=== PATIENT | male | born 1970 | race Caucasian/White ===

== ENCOUNTER 2021-07-02 11:54 | Inpatient (IN) ==
[2021-07-02] MEDS ORDERED: Standard 16mcg/mL; 4 MG in 250 mL for BRADYCARDIA IV SCH (12:15)
[2021-07-02] MEDS ORDERED: NOREPINEPHRINE BITARTRATE 1 MG/ML 4 ML VIAL (CATH LAB USE ONLY) ONE (12:30)
[2021-07-02] MEDS ORDERED: SODIUM BICARB 8.4% INJ 50 MEQ/50 ML SYR IV ONE (12:31)
--- NOTE | 2021-07-02 12:33 | Emergency Department Note ---
History of Present Illness General Chief complaint: Cardiac Arrest/CPR Stated complaint: CHEST PAIN Source: EMS and other (Girlfriend) Mode of arrival: EMS Limitations: clinical acuity History of Present Illness Provider complaint: Chest pain Onset (ago): day(s) 4 Location: chest Quality: + other (Gas and tightness) Associated symptoms: + nausea/vomiting and + shortness of breath This is a 51-year-old male who presents in cardiac arrest. Prior to going into arrest he provided history to EMS. EMS states that he had been having chest pain for 3 to 4 days. He describes it as a gas indigestion-like sensation as well as tightness in the chest. It was associated with shortness of breath. He had no significant improvement with nitroglycerin in the ambulance. He was given 2 nitroglycerin and aspirin in the ambulance. He was very pale according to the ambulance crew. He has not seen a doctor since he was 12 years old and smokes every day. He has no known medical problems. He has had no recent fever. He was vomiting and short of breath today. On the way to the hospital he went into cardiac arrest. He initially had pulseless V. tach. He was defibrillated once and given a total of 4 mg epinephrine IV. And I gel airway was placed and CPR was initiated. He continued to have PEA. Allergies Allergy/AdvReac Type Severity Reaction Status Date / Time No Known Allergies Allergy Verified 07/02/21 12:13 Past Med/Surg History Medical History No pertinent past medical history Social History Smoking Status: Current every day smoker Review of Systems See HPI for pertinent positives & negatives. Unobtainable due to endotracheal tube and Unobtainable due to reduced consciousness Physical Exam Vital Signs Vital Signs - 24 hr 07/02/21 12:18 07/02/21 12:27 07/02/21 13:42 Respiratory Rate 24 34 H Fraction of Inspired Oxygen 100 Sepsis Recent Fever Within 48 Hours No Sepsis New/Unexplained Change in Mental Status N/A Sepsis Action Taken by Nursing No Action Required The physical exam is limited due to the patient's condition. Constitutional: Vital signs reviewed. Eyes: Pupils are round. Conjunctiva are noninjected. HENT: I gel [address] Respiratory: Breath sounds are equal bilaterally. Cardiovascular: Pulseless. GI: Soft, nondistended. Musculoskeletal: IO access right proximal humerus. IV left upper extremity. Integumentary: Very pale. Neurological: The patient is unresponsive. Psychiatric: Unable to assess. Procedures Intubation Time out performed: No sedative: none Laryngoscope: fiber optic video scope ET Tube Size: 7.5 ET Tube Uncuffed: No Tube Secured Depth (cm): 25 Tube Secured Location: lips Tube Placement Confirmation: visualized tube passing through cords and equal breath sounds bilaterally Patient Tolerated Procedure: well Intubation Complications: none Medical Decision Making Differential Diagnosis Cardiopulmonary arrest, STEMI, CAD, aortic dissection, ventricular tachycardia Medical Records Attestation: I reviewed the patient's medical records. I did perform a limited focused review of portions of the patient's old chart on the electronic medical record. The patient has had no prior visits to this hospital. Home Medications Current Medication List: was personally reviewed by me Laboratory Data Attestation: I reviewed the patient's lab results. Result diagrams: 07/02/21 12:05 07/02/21 12:05 Lab Results 07/02/21 07/02/21 07/02/21 Range/Units 11:58 12:05 12:05 WBC 17.53 H (4.8-10.8) K/uL RBC 4.52 L (4.7-6.1) M/uL Hgb 13.2 L (14.0-18.0) g/dL Hct 40.8 L (42-52) % MCV 90.3 (80-100) fL MCH 29.2 (25-34) pg MCHC 32.4 (32-36) g/dL RDW Std Deviation 48.8 H (36.4-46.3) fL RDW Coeff of Kasey 14.8 H (11.5-14.5) % Plt Count 225 (130-400) K/uL MPV 11.7 H (7.4-10.4) fL Immature Gran % (Auto) 1.4 % Neut % (Auto) 74.4 % Lymph % (Auto) 18.5 % Hardee % (Auto) 4.9 % Eos % (Auto) 0.1 % Baso % (Auto) 0.7 % Neut # (Auto) 13.06 H (1.4-6.5) K/uL Lymph # (Auto) 3.24 (1.2-3.4) K/uL Hardee # (Auto) 0.86 H (0.11-0.59) K/uL Eos # (Auto) 0.01 (0-0.5) K/uL Baso # (Auto) 0.12 (0-0.2) K/uL Immature Gran # (Auto) 0.24 H (0.00-0.02) K/uL Absolute Nucleated RBC 0.27 H (0-0) K/uL Nucleated RBC % (auto) 1.6 % Platelet Estimate Normal (Normal) Ovalocytes 1+ Echinocytes 1+ PT (9.0-12.0) Seconds INR (0.9-1.1) APTT (21.0-31.0) Seconds PTT Ratio Activ Coag Time Kaolin (94-140) SECONDS POC pH (7.35-7.45) POC pCO2 (35-46) mmHg POC pO2 (80-95) mmHg POC HCO3 (19-24) kassidy/L POC Total CO2 (24-31) mmol/L POC Base Excess (-9-1.8) kassidy/L POC ABG O2 Sat (90-95) % Sodium Potassium Chloride Carbon Dioxide Anion Gap BUN Creatinine Est Cr Clr Drug Dosing Est GFR ( Amer) Est GFR (Non-Af Amer) BUN/Creatinine Ratio Glucose Calcium Magnesium Total Bilirubin AST ALT Alkaline Phosphatase Total Creatine Kinase CK-MB (CK-2) CK/CKMB % Calc Troponin I Cancelled Total Protein Albumin Globulin Albumin/Globulin Ratio Lipase SARS-CoV-2, RNA, NAAT NEGATIVE (NEGATIVE) 07/02/21 07/02/21 07/02/21 Range/Units 12:05 12:05 12:23 WBC (4.8-10.8) K/uL RBC (4.7-6.1) M/uL Hgb (14.0-18.0) g/dL Hct (42-52) % MCV (80-100) fL MCH (25-34) pg MCHC (32-36) g/dL RDW Std Deviation (36.4-46.3) fL RDW Coeff of Kasey (11.5-14.5) % Plt Count (130-400) K/uL MPV (7.4-10.4) fL Immature Gran % (Auto) % Neut % (Auto) % Lymph % (Auto) % [place] % (Auto) % Eos % (Auto) % Baso % (Auto) % Neut # (Auto) (1.4-6.5) K/uL Lymph # (Auto) (1.2-3.4) K/uL Hardee # (Auto) (0.11-0.59) K/uL Eos # (Auto) (0-0.5) K/uL Baso # (Auto) (0-0.2) K/uL Immature Gran # (Auto) (0.00-0.02) K/uL Absolute Nucleated RBC (0-0) K/uL Nucleated RBC % (auto) % Platelet Estimate (Normal) Ovalocytes Echinocytes PT (9.0-12.0) Seconds INR (0.9-1.1) APTT (21.0-31.0) Seconds PTT Ratio Activ Coag Time Kaolin 368 H (94-140) SECONDS POC pH (7.35-7.45) POC pCO2 (35-46) mmHg POC pO2 (80-95) mmHg POC HCO3 (19-24) kassidy/L POC Total CO2 (24-31) mmol/L POC Base Excess (-9-1.8) kassidy/L POC ABG O2 Sat (90-95) % Sodium Cancelled Potassium Cancelled Chloride Cancelled Carbon Dioxide Cancelled Anion Gap Cancelled BUN Cancelled Creatinine Cancelled Est Cr Clr Drug Dosing Cancelled Est GFR ( Amer) Cancelled Est GFR (Non-Af Amer) Cancelled BUN/Creatinine Ratio Cancelled Glucose Cancelled Calcium Cancelled Magnesium Cancelled Total Bilirubin Cancelled AST Cancelled ALT Cancelled Alkaline Phosphatase Cancelled Total Creatine Kinase Cancelled CK-MB (CK-2) Cancelled CK/CKMB % Calc Cancelled Troponin I Cancelled Total Protein Cancelled Albumin Cancelled Globulin Cancelled Albumin/Globulin Ratio Cancelled Lipase Cancelled SARS-CoV-2, RNA, NAAT (NEGATIVE) 07/02/21 07/02/21 07/02/21 Range/Units 12:45 12:46 13:19 WBC (4.8-10.8) K/uL RBC (4.7-6.1) M/uL Hgb (14.0-18.0) g/dL Hct (42-52) % MCV (80-100) fL MCH (25-34) pg MCHC (32-36) g/dL RDW Std Deviation (36.4-46.3) fL RDW Coeff of Kasey (11.5-14.5) % Plt Count (130-400) K/uL MPV (7.4-10.4) fL Immature Gran % (Auto) % Neut % (Auto) % Lymph % (Auto) % Hardee % (Auto) % Eos % (Auto) % Baso % (Auto) % Neut # (Auto) (1.4-6.5) K/uL Lymph # (Auto) (1.2-3.4) K/uL Hardee # (Auto) (0.11-0.59) K/uL Eos # (Auto) (0-0.5) K/uL Baso # (Auto) (0-0.2) K/uL Immature Gran # (Auto) (0.00-0.02) K/uL Absolute Nucleated RBC (0-0) K/uL Nucleated RBC % (auto) % Platelet Estimate (Normal) Ovalocytes Echinocytes PT (9.0-12.0) Seconds INR (0.9-1.1) APTT (21.0-31.0) Seconds PTT Ratio Activ Coag Time Kaolin 309 H 285 H (94-140) SECONDS POC pH 7.30 L (7.35-7.45) POC pCO2 50 H (35-46) mmHg POC pO2 123 H (80-95) mmHg POC HCO3 25 H (19-24) kassidy/L POC Total CO2 26 (24-31) mmol/L POC Base Excess -2.0 (-9-1.8) kassidy/L POC ABG O2 Sat 98.0 H (90-95) % Sodium Potassium Chloride Carbon Dioxide Anion Gap BUN Creatinine Est Cr Clr Drug Dosing Est GFR ( Amer) Est GFR (Non-Af Amer) BUN/Creatinine Ratio Glucose Calcium Magnesium Total Bilirubin AST ALT Alkaline Phosphatase Total Creatine Kinase CK-MB (CK-2) CK/CKMB % Calc Troponin I Total Protein Albumin Globulin Albumin/Globulin Ratio Lipase SARS-CoV-2, RNA, NAAT (NEGATIVE) ECG Data Attestation: I personally reviewed and interpreted this ECG as follows: Indication: + chest pain Rate (beats per minute): 123 Rhythm: + sinus tachycardia ECG ST segments: + ST depression and + ST elevation Comparison ECG Date: no prior available MDM Narrative I did provide prehospital medical command for the patient. At that time the patient was awake and complaining of chest pain. He had been given 2 nitroglycerin sprays as well as an aspirin prior to the medical command call. I did recommend IV fentanyl and Zofran and transport to the hospital. Apparently on route the patient went into cardiac arrest as soon as the shirt marker hung up the phone with me. He had pulseless V. tach and was shocked once and went into PEA. CPR was initiated. An I gel 3 was placed for airway protection. CPR was commenced and he was given a total of 4 mg of epinephrine prior to arrival. He also received 300 mg of amiodarone. I did immediately evaluate the patient as noted above. Pulse check revealed PEA. ACLS was continued. While in the emergency department I did place an order for continuous cardiac monitoring. The monitor showed PEA with a rate of 44. I did personally review the patient's prehospital 12-lead EKG as described above. He has an anterior lateral STEMI. Dr. Teague of cardiology was in the room when the patient arrived and stated he would take him straight to the [facility] [employer] after an airway was secured. I did intubate patient. A second IV was established. The patient was taken emergently to the cardiac catheterization lab. I did update the patient's significant other and obtain further history from her. I did order and review the patient's blood work as noted in the electronic medical record. His white count is 17. Hemoglobin is 13. Platelet count is 225. COVID-19 testing is negative. INR is elevated at 1.2. Impression & Plan Cardiac arrest, ST elevation (STEMI) myocardial infarction Discharge Plan Visit Data Chief Complaint: Cardiac Arrest/CPR Stated Complaint: CHEST PAIN ED Provider: Dhiraj Nava Discharge Problem: Cardiac arrest, ST elevation (STEMI) myocardial infarction Patient Disposition: Admitted As Inpatient Discharge Instructions Interventions: ED Discharge Assessment Last Done: 07/02/21 12:10 Discharge Problem: ST elevation (STEMI) myocardial infarction Qualifiers: Involved coronary artery: unspecified coronary artery Qualified Code(s): I21.3 - ST elevation (STEMI) myocardial infarction of unspecified site
[2021-07-02] MEDS ORDERED: EPTIFIBATIDE 0.75 MG/ML 75MG VIAL (CATH LAB USE ONLY) ONE (12:45)
[2021-07-02] MEDS ORDERED: EPTIFIBATIDE 2 MG/ML 10 ML VIAL (CATH LAB USE ONLY) IV ONE (12:45)
[2021-07-02 12:58] LABS: Basophils # (auto) 0.12 K/uL (0-0.2); Basophils % (auto) 0.7 %; Echinocytes 1+; Eosinophils # (auto) 0.01 K/uL (0-0.5); Eosinophils % (auto) 0.1 %; Hematocrit (blood only) 40.8 % (42-52); Hemoglobin 13.2 g/dL (14.0-18.0); Immature Granulocytes # (auto) 0.24 K/uL (0.00-0.02); Immature Granulocytes % (auto) 1.4 %; Lymphocytes # (auto) 3.24 K/uL (1.2-3.4); Lymphocytes % (auto) 18.5 %; Mean Corpuscular Hemoglobin 29.2 pg (25-34); Mean Corpuscular Hgb Conc 32.4 g/dL (32-36); Mean Corpuscular Volume 90.3 fL (80-100); Mean Platelet Volume 11.7 fL (7.4-10.4); Monocytes # (auto) 0.86 K/uL (0.11-0.59); Monocytes % (auto) 4.9 %; Neutrophils # (auto) 13.06 K/uL (1.4-6.5); Neutrophils % (auto) 74.4 %; Nucleated RBC # (auto) 0.27 K/uL (0-0); Nucleated RBC % (auto) 1.6 %; Ovalocytes 1+; Platelet Count 225 K/uL (130-400); Platelet Estimate Normal (Normal); RDW Coefficient of Variation 14.8 % (11.5-14.5); RDW Standard Deviation 48.8 fL (36.4-46.3); Red Blood Count 4.52 M/uL (4.7-6.1); White Blood Count 17.53 K/uL (4.8-10.8)
[2021-07-02] MEDS ORDERED: AMIODARONE 360MG / 200ML D5W (CATH LAB USE ONLY) ONE (13:06)
[2021-07-02] MEDS ORDERED: AMIODARONE 150MG / 100ML D5W (CATH LAB USE ONLY) ONE (13:06)
[2021-07-02] MEDS ORDERED: VASOPRESSION #-# Do NOT Titrate #-# Option IV SCH (13:45)
[2021-07-02] MEDS ORDERED: SODIUM BICARBONATE 8.4% 150 MEQ in DEXTROSE 5% 1,000 ML IV SCH (13:45)
[2021-07-02 15:57] LABS: iSTAT Arterial Blood Gas HCO3 25 meg/L (19-24); iSTAT Arterial Blood Gas pCO2 50 mmHg (35-46); iSTAT Arterial Blood Gas pO2 123 mmHg (80-95); iSTAT Carbon Dioxide 26 mmol/L (24-31)
--- NOTE | 2021-07-02 16:22 | Cardiology Consultation ---
Date of Consultation July 02, 2021 Assessment & Plan (1) Cardiac arrest: Patient with anterior WI and persistent cardiac arrest beginning while en route with EMS. Young patient with no known comorbidities. Recommend emergent mechanical circulatory support and possible PCI. History of Present Illness Attending Physician: Aditya Teague MD History of Present Illness Mr. Munson is a 51-year-old man seen emergently in the ED for anterior STEMI and cardiac arrest. Patient with no known prior medical history. Active smoker. Family history of premature CAD involving his mother. Reportedly having intermittent chest pain for the last several days. This morning around 3 AM he woke up his significant other due to chest pain and vomiting. Chest pain persisted until eventually called EMS approximately 8 hours later. Heart alert was activated in route around 11:30 AM due to EKG showing diffuse >3 mm anterior/lateral ST elevations. While in ambulance patient subsequently had a VF arrest requiring defibrillation x1 with subsequent PEA which persisted on arrival. CPR ongoing with Tao device. Allergies Allergy/AdvReac Type Severity Reaction Status Date / Time No Known Allergies Allergy Verified 07/02/21 12:13 Patient History Medical History No pertinent past medical history Social History Smoking Status: Current every day smoker Review of Systems Review of Systems: Unobtainable due to endotracheal tube Physical Exam Physical Exam: General: Intubated, unresponsive Vascular: Nonpalpable radial pulse. Palpable femoral pulse with chest compressions Abdomen: Soft Extremities: No edema, cool Results & Data ([facility]) Vital Signs (Past 12 Hours) Vital Signs Resp 07/02/21 13:42 34 H 07/02/21 12:27 24 PG Care Time/CCT Total # of Minutes Spent Total Time Spent with Patient: Total time spent is greater than 50% in coordination of care (as documented) at patient's floor/unit and/or counseling patient: Coding Level of Care Code 12459 Inpt Consult Level 5 Diagnoses Cardiac arrest I46.9
--- NOTE | 2021-07-02 17:23 | Cardiac Catheterization ---
[facility] Data: Bait Packer Cardiac Status Clinical evaluation leading to the procedure CAD Presenation: STEMI Anginal Classification: CCS IV Heart Failure: No Cardiogenic Shock within 24 Hours: Yes Cardiac Arrest within 24 Hours: Yes Diagnostic Physicians Name: Aditya Teague MD Status: Emergency Closure Device Percutaneous Entry Location: Femoral Recommendations: PCI without planned CABG PCI Indication: Immediate PCI for STEMI Lesion Segment Name: Proximal left main Culprit Artery: Yes Stenosis Prior to Rx (%): 100 Chronic Total Occlusion: No IVUS: No FFR: No Pre-Procedure SATHYA Flow: 0 Previously Treated Lesion: No Lesion Complexity: High/C Lesion Length (mm): 30 Thrombus Present: Yes Bifurcation Lesion: Yes Guidewire Across Lesion: Stenosis Post-Procedure (%): 0 Post-Procedure SATHYA Flow: 3 Devices(s) Deployed: Yes Yes Intraprocedure Events Significant Disection: No Perforation: No Cardiac Cath Procedure Full Procedure Date July 02, 2021 Pre-Procedure Diagnosis Pre-Procedure Diagnosis: STEMI AUC Score AUC Score: 9 Post-Procedure Diagnosis Post-Procedure Diagnosis: Severe CAD, Unsuccessful PCI and Elevated Intracardiac Pressures Procedure(s) Performed Procedure(s) Performed: Coronary Angiography, Left Heart Cath, Right Heart Cath, Drug Eluting Stent, Ultrasound Guided Vascular Access, Femoral Artery Angio graphy and Procedure (Impella placement) Department Of Sociology Chair Aditya Teague MD Proposal Analyst(s) Rashawn Estimated Blood Loss Estimated Blood Loss: 25 Medication(s) Medication(s): Atropine, Epinephrine, Heparin, Integrilin and Norepinephrine Medication(s): Amiodarone, vasopressin, sodium bicarbonate Summary of Findings Indication: STEMI/Heart Alert Anterior MT with symptoms beginning around 9 hours prior to presentation. VF arrest in the ambulance en route followed by persistent PEA. Ongoing CPR with Tao device upon arrival. Access: 6 Fr right TAKER OFF DRYING KILN, 7 Fr right CFV, 14 Fr left TAKER OFF DRYING KILN Catheters: Pigtail, EBU 3.5 guide, diagnostic JR4, 7 Fr [place] Findings: LM -acute 100% proximal occlusion. After flow reestablished long vessel with 90% stenosis at bifurcation with small circumflex LAD -medium caliber, 98% ostial/proximal stenosis, ectatic prior to large bifurcating D1. Mid LAD with moderate diffuse disease. Distal vessel spasm. Inferior branch of D1 with severe disease. Circumflex -very small, nondominant, 90% ostial stenosis RCA -dominant, large caliber, mildly calcified, ectatic mid segment, 80% sydnee nosis in right posterior AV branch after takeoff of PDA. PDA, RPL without significant disease. -- PCI -- Antithrombotic therapy: Heparin, Integrilin Procedure: At start of procedure patient remained PEA with CPR via Tao device and repeated bolus epinephrine, bicarbonate. Given 10,000 units of heparin. Right TAKER OFF DRYING KILN cannulated with 6 Fr sheath. Minimal flow initially and concern for possible dissection plane. Left TAKER OFF DRYING KILN access under ultrasound guidance with placement of 6 Fr sheath. Angiography revealed suitable iliac for Impella placement Left TAKER OFF DRYING KILN arteriotomy dilated and 14 Fr long sheath placed Left heart cath with pigtail catheter Over wire pigtail exchanged for Impella CP catheter Impella CP device initially at auto settings with cardiac output of approximately 3.1 L CPR stopped. Continued on epi, norepinephrine and amiodarone drips 14 Fr sheath cannulated with long 6 Fr sheath Left main cannulated with EBU 3.5 guide Ski [employer] [place] 50 wire navigated across occlusion into long diagonal Multiple left main/LAD inflations with 2.5 balloon reestablished flow Second wire placed into long distal LAD. Brief attempt made to place wire into circumflex but appeared to be small, nondominant. Due to thrombus burden started on Integrilin infusion Left main/LAD redilated with 2.5 balloon Proximal left main across proximal LAD stented with 3.0 x 30 mm Hatch drug- eluting stent Stent postdilated with stent balloon Stent expanded appropriately. Residual thrombus and ectatic segment just after stent Attempt made at aspiration thrombectomy but unable to pass export catheter across stent. Second DAWNA placed from proximal to mid LAD across takeoff of D1 Stent postdilated with stent balloon. Post stenting had SATHYA 3 flow in LAD/diagonal. Residual thrombus and ectatic segment at bifurcation with D1. SATHYA II flow in small, jailed nondominant circumflex. Following removal of guide MAPs began to decline. Impella flow reduced to less than 2 L with suction alerts which did not respond to repositioning of catheter and continuous wide-open fluids. Bedside echo showed minimal LV contraction. Of note was found to have a small LV cavity with severe LV hypertrophy raising concern for possible HCM or infiltrative disease. Also with severe RV dysfunction. Trace pericardial effusion without evidence of tamponade. Right CFV access obtained under ultrasound guidance Right heart cath RA 30, PA 28/33, PA sat 18%. Despite high-dose epinephrine, norepinephrine, vasopressin and intermittent boluses of epinephrine maps continue to gradually decline. Thought to have significant RV failure and Impella output remained low with no pulse pressure. Patient remained too unstable for transfer to tertiary center. With prolonged inadequate perfusing pressure and no additional options for hemodynamic support procedure completed. Family informed of impending patient . Summary: 1. Anterolateral STEMI 2. Out of hospital cardiac arrest 3. Acute 100% proximal left main occlusion Severe distal left main, proximal LAD disease post reestablished flow 80% distal right posterior AV branch stenosis 4. Severe concentric LVH concerning for possible HCM versus infiltrative disease on echo. 5. Impella CP placement 6. PCI of left main to mid LAD with 2 overlapping drug-eluting stents 7. Refractory cardiogenic shock 8. Right ventricular failure Time of 14:32 Hemodynamics Rest Ao:: 76/38/50 Final Ao: 60/54/40 LV: -- Recommendations Recommendations: PCI without planned CABG Specimens Specimens: None Radiation Exposure (mGy) -- Contrast (mls) -- Disposition [employer]/Recovery I attest to the content of the Intraoperative Record and any orders documented therein. Any exceptions are noted below. [facility] Card Cath Procedure Codes Cardiac Catheterization Procedure 1: Cardiovascular Cath Procedures: 05520 Coronaries & LHC (+/-LV) & [facility]HC Therapeutic Services & Ancillary Proc Procedure 1: Cardiovascular Tx and Anc Procedures: 61101 Insertion of Percutaneous Ventricular Assist Device Procedure 2: Cardiovascular Tx and Anc Procedures: 35939 Ultrasonic Guidance Vascular Access Procedure 3: Cardiovascular Tx and Anc Procedures: 20073 Ultrasonic Guidance Vascular Access Stenting Procedure 1: Cardiovascular Stent Procedures: 12969 Perc transluminal revascularization of acute sub/total occl, aMI PG Care Time/CCT Total # of Minutes Spent Total Time Spent with Patient: Total time spent is greater than 50% in coordination of care (as documented) at patient's floor/unit and/or counseling patient:
--- NOTE | 2021-07-02 17:31 | Death Pronouncement Note ---
Date of Service July 02, 2021 Pronouncement Note Admission Date Admission Date: 07/02/2021 Date and Time of Date of : 07/02/21 Time of : 14:32 PCOD Preliminary cause of : Myocardial Infarction Contributing Factors (1) Cardiac arrest: Hospital Course Hospital Course: Seen emergently in the ED for anterior STEMI and cardiac arrest. Patient with no known prior medical history. Active smoker. Family history of premature CAD involving his mother. Reportedly having intermittent chest pain for the last several days. This morning around 3 AM he woke up due to chest pain and vomiting. Chest pain persisted until eventually called EMS approximately 8 hours later. Heart alert was activated en route around 11:30 AM due to EKG showing diffuse >3 mm anterior/lateral ST elevations. While in ambulance patient subsequently had a VF arrest requiring defibrillation x1 with subsequent PEA which persisted on arrival. CPR ongoing with Tao device in ED. Taken emergently to cardiac catheterization lab following securing of airway in ED. Underwent placement of Impella CP device. Cardiac catheterization revealed 100% acute proximal left main occlusion. Treated with 2 overlapping drug- eluting stents from proximal left main to mid LAD. SATHYA-3 flow reestablished into LAD and moderate diagonal. Despite reestablished flow had escalating pressor requirements. Echo showed severe concentric LVH potentially consistent with HCM versus infiltrative disease but no significant pericardial effusion. Right heart cath remarkable for right ventricular failure and refractory cardiogenic shock. No additional options for hemodynamic support and patient too unstable for transfer to tertiary center. Family made aware of patient condition. Patient in Welding Estimator holding area at 14: 32. Additional Data Attending physician: Aditya Teague MD Coding Level of Care Code D/C DAY MANAGEMENT >30 MINS Diagnoses Cardiac arrest I46.9
--- NOTE | 2021-07-03 17:48 | XCELERA ---
[id number]
== END 2021-07-02 14:32 | disposition expired | DRG 215 ==
LOC: ED 11:54 → ASU 12:00 → OR 12:00 → ASUINP 07-03 16:02
PROC: CLB.CPR (2021-07-02 12:00)
DX: I46.2 Cardiac arrest due to underlying cardiac condition; F17.200 Nicotine dependence, unspecified, uncomplicated; Z82.49 Family history of ischemic heart disease and other diseases of the circulatory system; I42.2 Other hypertrophic cardiomyopathy; I25.10 Atherosclerotic heart disease of native coronary artery without angina pectoris; R57.0 Cardiogenic shock; I50.810 Right heart failure, unspecified; I21.01 ST elevation (STEMI) myocardial infarction involving left main coronary artery; Z20.822 Contact with and (suspected) exposure to COVID-19